=== PATIENT | female | born 1945 | race Caucasian/White ===

== ENCOUNTER → 2018-02-06 | Outpatient (CLI) | payer OTHER ==
[~2018-02-06] MED LIST: ALPRAZOLAM; ASPIR 8181 MG PO; BACTRIM DS TAB1 EACH PO; CIPRO500 MG PO; CIPROFLOXACIN500 M1 PO; FISH OIL 1,001000 M2 PO; FLAGYL500 MG PO; GYNODIOL1 MG PO; LISINOPRIL-HCT1 EAC1 PO; LOPRESSOR 50 MG50 M1 PO; LOPRESSOR50 PO; MIDAMOR 5MG TABL5 M1 PO; MIRALAX17 G1 PO; MIRALAX17 GM PO; NORVASC5 MG PO; PREDNISONE 20 M20 M1 PO; PRILOSEC 20 MG20 MG PO; PRILOSEC20 MG PO; TYLENOL EXTRA500 MG PO; XANAX1 MG PO; ZOFRAN4 MG PO; ZPAK PO
[2018-02-06 08:29] LABS: CREATININE 0.7 mg/dL (0.6-1.3)
== END ==
LOC: M.CT 08:07 → M.LAB 08:30 → M.CT 09:30
PROVIDERS: Family Medicine
DX: N81.10 Cystocele, unspecified (principal); M48.07 Spinal stenosis, lumbosacral region; M77.9 Enthesopathy, unspecified; R19.04 Left lower quadrant abdominal swelling, mass and lump; G95.89 Other specified diseases of spinal cord

== ENCOUNTER → 2018-04-03 | Outpatient (CLI) | payer OTHER | LOC: M.RAD 09:11 | DX: Z12.31 Encounter for screening mammogram for malignant neoplasm of breast (principal) ==

== ENCOUNTER 2018-07-03 09:42 | Emergency (ER) | payer OTHER ==
[~2018-07-03] VITALS: Ht 147.3 cm; Wt 70.0 kg
[2018-07-03 10:38] LABS: HEMATOCRIT 40.4 % (37.0-47.0); HEMOGLOBIN 13.7 gm/dL (12.0-15.0); MCH 27.5 pg (26.0-34.0); MCHC 33.9 g/dL (28.0-37.0); MCV 81.1 fL (80.0-100.0); MPV 8.9 fl. (7.2-11.1); RBC 4.98 mil/uL (4.20-5.00); RDW-CV 14.9 % (10.5-14.5); WBC 7.8 thou/uL (4.0-11.0)
[2018-07-03 10:42] LABS: URINE BILIRUBIN NEGATIVE (Negative); URINE BLOOD NEGATIVE (Negative); URINE CLARITY CLEAR; URINE COLOR YELLOW; URINE GLUCOSE-RANDOM NEGATIVE (Negative); URINE KETONES NEGATIVE (Negative); URINE LEUKOCYTES NEGATIVE (Negative); URINE NITRITE NEGATIVE (Negative); URINE PROTEIN NEGATIVE (Negative); URINE UROBILINOGEN 0.2 E.U./dl (0.2-1.0)
[2018-07-03 10:49] LABS: CALCIUM 8.8 mg/dL (8.5-10.1); CREATININE 0.8 mg/dL (0.6-1.3); POTASSIUM 3.1 mmol/L (3.5-5.1)
[2018-07-03 10:54] LABS: ALBUMIN 3.3 g/dL (3.4-5.0); TOTAL BILIRUBIN 0.4 mg/dL (<0.1-1.0); TOTAL PROTEIN 7.4 g/dL (6.4-8.2)
[2018-07-03 13:40] VITALS: BP 117/42
--- NOTE | 2018-07-03 17:02 | EKG ---
[place] [address] ELECTROCARDIOGRAM REPORT Name: PEDRO GALE [id number] Admission: 07/03/18 Attend Phys: Discharge: 07/03/18 Date of : 43 Report #: [id number] THIS REPORT FOR: //name// [facility] ED Test Date: 2018-07-03 Test Time: 10:29:44 Pat Name: PEDRO GALE Department: Room: Gender: F Relationship Assoc: : 1945 Requested By: Iram Soto Order Number: [id number] MD: Madhu Boyd Measurements Intervals [place] Rate: 59 P: 8 VA: 177 QRS: -7 QRSD: 91 T: -10 QT: 426 QTc: 422 Interpretive Statements Sinus rhythm nonspecific t wave changes Compared to ECG 07/29/2017 09:59:49 no change Electronically Signed On 07-03-2018 17:02:23 CDT by Madhu Boyd [email or web address] <ELECTRONICALLY SIGNED> By: Madhu Boyd MD, [facility] 07/03/18 1702 1029 1029 Madhu Boyd MD, FACC /EPI
== END 2018-07-03 13:41 | disposition home or self-care (01) ==
LOC: M.ERS 09:42
PROVIDERS: Physician Assistant Surgical
DX: R10.84 Generalized abdominal pain (principal); I10 Essential (primary) hypertension; Z90.49 Acquired absence of other specified parts of digestive tract; Z79.82 Long term (current) use of aspirin; Z88.5 Allergy status to narcotic agent

== ENCOUNTER → 2018-11-07 | Outpatient (CLI) | payer OTHER | LOC: M.ULTRA 10-30 09:43 | DX: R10.32 Left lower quadrant pain (principal); Z90.710 Acquired absence of both cervix and uterus; Z90.722 Acquired absence of ovaries, bilateral ==

== ENCOUNTER 2019-06-28 09:14 | Emergency (ER) | payer OTHER ==
[~2019-06-28] VITALS: Ht 147.3 cm; Wt 70.3 kg
[2019-06-28 09:57] LABS: ABSOLUTE BASOPHILS 0.1 thou/uL (0.0-0.2); ABSOLUTE EOSINOPHILS 0.1 thou/uL (0.0-0.7); ABSOLUTE LYMPHOCYTES 1.4 thou/uL (0.8-5.3); ABSOLUTE MONOCYTES 0.4 thou/uL (0.0-1.2); ABSOLUTE NEUTROPHILS 5.9 thou/uL (1.6-8.1); BASOPHILS 0.7 %; EOSINOPHILS 1.9 %; HEMATOCRIT 38.6 % (37.0-47.0); LYMPHOCYTES 17.3 %; MCH 26.8 pg (26.0-34.0); MCHC 33.8 g/dL (28.0-37.0); MCV 79.5 fL (80.0-100.0); MONOCYTES 5.2 %; MPV 8.9 fl. (7.2-11.1); NUCLEATED RBCS 0 /100WBC; PLATELET COUNT* 202 thou/uL (150-400); POLYS 74.9 %; RBC 4.86 mil/uL (4.20-5.00); RDW-CV 15.1 % (10.5-14.5); WBC 7.9 thou/uL (4.0-11.0)
[2019-06-28 10:07] LABS: ANION GAP 9 mmol/L (7-16); BUN 9 mg/dL (7-18); CALCIUM 8.9 mg/dL (8.5-10.1); CHLORIDE 100 mmol/L (98-107); CO2 28 mmol/L (21-32); CREATININE 0.9 mg/dL (0.6-1.3); GLUCOSE 135 mg/dL (70-99); POTASSIUM 3.3 mmol/L (3.5-5.1); SODIUM 137 mmol/L (136-145)
[2019-06-28 10:16] LABS: ALBUMIN 3.2 g/dL (3.4-5.0); ALKALINE PHOSPHATASE 87 U/L (46-116); LIPASE 86 U/L (73-393); SGOT 16 U/L (15-37); SGPT 25 U/L (30-65); TOTAL BILIRUBIN 0.4 mg/dL (<0.1-1.0); TOTAL PROTEIN 6.7 g/dL (6.4-8.2); TROPONIN-I LEVEL <0.06 ng/mL (<0.06)
[2019-06-28] MEDS ORDERED: ZPAK PO (11:43)
[2019-06-28] MEDS ORDERED: FLAGYL500 M1 PO (11:43)
[2019-06-28 12:00] VITALS: BP 143/42
--- NOTE | 2019-06-28 16:44 | EKG ---
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 <ELECTRONICALLY SIGNED> By: Walter Wong MD, [facility] 06/28/19 1644 1009 1009 Walter Wong MD, [facility] /EPI
== END 2019-06-28 12:01 | disposition home or self-care (01) ==
LOC: M.ERS 09:14
PROVIDERS: Emergency Medicine Emergency Medical Services
DX: R19.7 Diarrhea, unspecified (principal); R10.84 Generalized abdominal pain; I10 Essential (primary) hypertension; F41.9 Anxiety disorder, unspecified; Z88.5 Allergy status to narcotic agent; Z90.49 Acquired absence of other specified parts of digestive tract; Z90.710 Acquired absence of both cervix and uterus

== ENCOUNTER → 2019-07-30 | Outpatient (CLI) | payer OTHER ==
[~2019-07-30] MED LIST changes: +FLAGYL500 M1 PO
== END ==
LOC: M.RAD 13:00
DX: Z12.31 Encounter for screening mammogram for malignant neoplasm of breast (principal)

== ENCOUNTER 2020-04-09 13:42 | Emergency (ER) | payer OTHER ==
[~2020-04-09] VITALS: Ht 147.3 cm; Wt 72.6 kg
[2020-04-09] MEDS ORDERED: KLOR-CON 10 ER10 MEQ PO (14:05)
[2020-04-09 14:13] LABS: URINE BILIRUBIN NEGATIVE (Negative); URINE BLOOD NEGATIVE (Negative); URINE CLARITY CLEAR; URINE COLOR YELLOW; URINE GLUCOSE-RANDOM NEGATIVE (Negative); URINE KETONES NEGATIVE (Negative); URINE LEUKOCYTES-REFLEX NEGATIVE (Negative); URINE NITRITE-REFLEX NEGATIVE (Negative); URINE PROTEIN NEGATIVE (Negative); URINE UROBILINOGEN 0.2 E.U./dl (0.2-1.0)
[2020-04-09] MEDS ORDERED: LASIX 40 MG TAB40 MG PO (14:21)
[2020-04-09] MEDS ORDERED: HYDROCHLOROTHIA25 M2 PO (14:22)
[2020-04-09 14:42] LABS: ABSOLUTE BASOPHILS 0.1 thou/uL (0.0-0.2); ABSOLUTE EOSINOPHILS 0.2 thou/uL (0.0-0.7); ABSOLUTE LYMPHOCYTES 2.1 thou/uL (0.8-5.3); ABSOLUTE MONOCYTES 0.6 thou/uL (0.0-1.2); ABSOLUTE NEUTROPHILS 8.3 thou/uL (1.6-8.1); BASOPHILS 0.9 %; EOSINOPHILS 1.6 %; HEMATOCRIT 40.1 % (37.0-47.0); HEMOGLOBIN 13.7 gm/dL (12.0-15.0); LYMPHOCYTES 18.4 %; MCH 27.2 pg (26.0-34.0); MCHC 34.3 g/dL (28.0-37.0); MCV 79.4 fL (80.0-100.0); MONOCYTES 5.5 %; MPV 9.2 fl. (7.2-11.1); NUCLEATED RBCS 0 /100WBC; PLATELET COUNT* 240 thou/uL (150-400); POLYS 73.6 %; RBC 5.05 mil/uL (4.20-5.00); RDW-CV 15.3 % (10.5-14.5); WBC 11.3 thou/uL (4.0-11.0)
[2020-04-09 14:49] LABS: APTT 25.5 Seconds (25.0-31.3); CALCIUM 8.5 mg/dL (8.5-10.1); POTASSIUM 3.1 mmol/L (3.5-5.1)
[2020-04-09 14:59] LABS: ALBUMIN 3.5 g/dL (3.4-5.0); TOTAL BILIRUBIN 0.3 mg/dL (<0.1-1.0); TOTAL PROTEIN 7.5 g/dL (6.4-8.2)
[2020-04-09 16:30] VITALS: BP 131/45
--- NOTE | 2020-04-09 16:37 | EKG ---
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 : 1945 Requested By: Ramsey Butts Order Number: [id number] MD: Madhu Boyd Measurements Intervals [place] Rate: 118 P: 41 ME: 183 QRS: -12 QRSD: 85 T: -15 QT: 334 QTc: 469 Interpretive Statements Sinus tachycardia Low voltage, precordial leads Consider anterior infarct baseline wander Compared to ECG 06/28/2019 10:09:48 Low QRS voltage now present ST (T wave) deviation now present Sinus rhythm no longer present Atrial premature complex(es) no longer present Electronically Signed On 04-09-2020 16:36:04 CDT by Madhu Boyd [email or web address] <ELECTRONICALLY SIGNED> By: Madhu Boyd MD, [facility] 04/09/20 1636 141 141 Madhu Boyd MD, [facility] /EPI
--- NOTE | 2020-04-10 10:15 | EKG ---
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 : 1945 Requested By: Ramsey Butts Order Number: [id number] MD: Madhu Boyd Measurements Intervals [place] Rate: 87 P: 12 [place]: 165 QRS: -13 QRSD: 90 T: -16 QT: 367 QTc: 442 Interpretive Statements Sinus rhythm Low voltage, precordial leads Consider anterior infarct Borderline T abnormalities, inferior leads Baseline wander in lead(s) I,II,III,aVR,aVL,V2,V3 Compared to ECG 04/09/2020 14:12:46 Sinus tachycardia no longer present Myocardial infarct finding still present Electronically Signed On 04-10-2020 10:14:20 CDT by Madhu Boyd [email or web address] <ELECTRONICALLY SIGNED> By: Madhu Boyd MD, [facility] 04/10/20 1014 1613 1613 Madhu Boyd MD, [facility] /EPI
== END 2020-04-09 16:31 | disposition home or self-care (01) ==
LOC: M.ERS 13:42
PROVIDERS: Family Medicine
DX: R06.00 Dyspnea, unspecified (principal); R53.1 Weakness; R14.0 Abdominal distension (gaseous); I10 Essential (primary) hypertension; F41.9 Anxiety disorder, unspecified; Z90.49 Acquired absence of other specified parts of digestive tract; Z88.5 Allergy status to narcotic agent; Z90.710 Acquired absence of both cervix and uterus; Z90.89 Acquired absence of other organs; Z79.899 Other long term (current) drug therapy; Z79.82 Long term (current) use of aspirin

== ENCOUNTER 2020-12-06 08:36 | Emergency (ER) | payer OTHER ==
[~2020-12-06] VITALS: Ht 147.3 cm; Wt 72.6 kg
[~2020-12-06 08:36] MED LIST changes: +HYDROCHLOROTHIA25 M2 PO; +KLOR-CON 10 ER10 MEQ PO; +LASIX 40 MG TAB40 MG PO
[2020-12-06 08:50] VITALS: BP 145/68
[2020-12-06] MEDS ORDERED: TOPROL XL50 MG PO (08:53)
[2020-12-06] MEDS ORDERED: BENTYL 10 MG CA10 M1 PO (08:53)
[2020-12-06] MEDS ORDERED: VITAMIN D-40010 MCG PO (08:54)
== END 2020-12-06 09:55 | disposition home or self-care (01) ==
LOC: M.ERS 08:36
DX: M79.604 Pain in right leg (principal); I10 Essential (primary) hypertension; Z90.710 Acquired absence of both cervix and uterus; Z90.49 Acquired absence of other specified parts of digestive tract; Z88.5 Allergy status to narcotic agent

== ENCOUNTER 2020-12-11 01:17 | Emergency (ER) | payer OTHER ==
[~2020-12-11] VITALS: Ht 147.3 cm; Wt 72.6 kg
[~2020-12-11 01:17] MED LIST changes: +BENTYL 10 MG CA10 M1 PO; +TOPROL XL50 MG PO; +VITAMIN D-40010 MCG PO
[2020-12-11] MEDS ORDERED: TOPROL XL50 MG (01:24)
[2020-12-11] MEDS ORDERED: LASIX 40 MG TAB40 MG PO (01:25)
[2020-12-11] MEDS ORDERED: HYDROCHLOROTHIA25 M2 PO (01:25)
[2020-12-11] MEDS ORDERED: EFFER-K 10 MEQ10 ME1 PO (01:25)
[2020-12-11] MEDS ORDERED: MIRALAX119 GM PO (01:26)
[2020-12-11] MEDS ORDERED: OMEPRAZOLE 20 M20 M1 PO (01:26)
[2020-12-11 02:07] LABS: URINE BILIRUBIN NEGATIVE (Negative); URINE BLOOD NEGATIVE (Negative); URINE CLARITY CLEAR; URINE COLOR YELLOW; URINE GLUCOSE-RANDOM 1+ (Negative); URINE KETONES NEGATIVE (Negative); URINE LEUKOCYTES-REFLEX NEGATIVE (Negative); URINE NITRITE-REFLEX NEGATIVE (Negative); URINE PROTEIN NEGATIVE (Negative); URINE SPECIFIC GRAVITY <= 1.005 (1.005-1.030); URINE UROBILINOGEN 0.2 E.U./dl (0.2-1.0)
[2020-12-11 02:48] LABS: ABSOLUTE EOSINOPHILS 0.1 thou/uL (0.0-0.7); ABSOLUTE LYMPHOCYTES 0.6 thou/uL (0.8-5.3); ABSOLUTE MONOCYTES 0.6 thou/uL (0.0-1.2); ABSOLUTE NEUTROPHILS 4.5 thou/uL (1.6-8.1); BASOPHILS 0.5 %; EOSINOPHILS 1.7 %; HEMATOCRIT 35.8 % (37.0-47.0); HEMOGLOBIN 12.3 gm/dL (12.0-15.0); LYMPHOCYTES 10.6 %; MCH 26.6 pg (26.0-34.0); MCHC 34.5 g/dL (28.0-37.0); MCV 77.1 fL (80.0-100.0); MONOCYTES 9.6 %; MPV 7.9 fl. (7.2-11.1); NUCLEATED RBCS 0 /100WBC; PLATELET COUNT* 163 thou/uL (150-400); POLYS 77.6 %; RBC 4.64 mil/uL (4.20-5.00); RDW-CV 15.6 % (10.5-14.5); WBC 5.8 thou/uL (4.0-11.0)
[2020-12-11 02:52] LABS: CALCIUM 8.7 mg/dL (8.5-10.1); CREATININE 0.8 mg/dL (0.6-1.3); POTASSIUM 3.3 mmol/L (3.5-5.1)
[2020-12-11 02:57] LABS: TOTAL BILIRUBIN 0.3 mg/dL (<0.1-1.0); TOTAL PROTEIN 6.4 g/dL (6.4-8.2)
[2020-12-11] MEDS ORDERED: ACYCLOVIR 400400 MG PO (03:20)
[2020-12-11] MEDS ORDERED: HYDROCODON-ACE1 EAC8 PO (03:20)
[2020-12-11 04:14] VITALS: BP 161/52
== END 2020-12-11 04:15 | disposition home or self-care (01) ==
LOC: M.ERS 01:17
PROVIDERS: Emergency Medicine
DX: B02.9 Zoster without complications (principal); K59.00 Constipation, unspecified; M54.9 Dorsalgia, unspecified; R39.12 Poor urinary stream; I10 Essential (primary) hypertension; F41.9 Anxiety disorder, unspecified; Z90.711 Acquired absence of uterus with remaining cervical stump; Z90.49 Acquired absence of other specified parts of digestive tract; Z98.890 Other specified postprocedural states; Z79.82 Long term (current) use of aspirin; Z79.899 Other long term (current) drug therapy; Z88.5 Allergy status to narcotic agent

== ENCOUNTER 2020-12-29 15:07 | Emergency (ER) | payer OTHER ==
[~2020-12-29] VITALS: Ht 147.3 cm; Wt 71.2 kg
[~2020-12-29 15:07] MED LIST changes: +ACYCLOVIR 400400 MG PO; +EFFER-K 10 MEQ10 ME1 PO; +HYDROCODON-ACE1 EAC8 PO; +MIRALAX119 GM PO; +OMEPRAZOLE 20 M20 M1 PO; +TOPROL XL50 MG
[2020-12-29] MEDS ORDERED: NORCO5 PO (15:23)
[2020-12-29] MEDS ORDERED: NEURONTIN300 MG PO (15:23)
[2020-12-29 16:21] LABS: ABSOLUTE EOSINOPHILS 0.2 thou/uL (0.0-0.7); ABSOLUTE LYMPHOCYTES 1.4 thou/uL (0.8-5.3); ABSOLUTE MONOCYTES 0.5 thou/uL (0.0-1.2); ABSOLUTE NEUTROPHILS 6.7 thou/uL (1.6-8.1); BASOPHILS 0.4 %; EOSINOPHILS 1.9 %; HEMATOCRIT 40.7 % (37.0-47.0); HEMOGLOBIN 13.5 gm/dL (12.0-15.0); LYMPHOCYTES 15.8 %; MCHC 33.1 g/dL (28.0-37.0); MCV 78.4 fL (80.0-100.0); MONOCYTES 5.3 %; MPV 7.8 fl. (7.2-11.1); NUCLEATED RBCS 0 /100WBC; PLATELET COUNT* 269 thou/uL (150-400); POLYS 76.6 %; RBC 5.19 mil/uL (4.20-5.00); RDW-CV 15.8 % (10.5-14.5); WBC 8.7 thou/uL (4.0-11.0)
[2020-12-29 16:28] LABS: CALCIUM 9.9 mg/dL (8.5-10.1); CREATININE 0.7 mg/dL (0.6-1.3); POTASSIUM 3.6 mmol/L (3.5-5.1)
[2020-12-29 17:52] VITALS: BP 155/61
--- NOTE | 2020-12-30 09:31 | EKG ---
[place] [address] ELECTROCARDIOGRAM REPORT Name: PEDRO GALE Room: 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[facility] : 1945 Requested By: Brynn Reddy Order Number: [id number] MD: Zechariah Lindo Measurements Intervals [place] Rate: 75 P: 6 [place]: 151 QRS: -14 QRSD: 89 T: -16 QT: 402 QTc: 449 Interpretive Statements Sinus rhythm Delayed R wave progression Nonspecific ST segment depression compared to ECG 04/09/2020 16:13:09 no significant changes noted Electronically Signed On 12-30-2020 9:31:21 CREMATOR by Zechariah Lindo [email or web address] <ELECTRONICALLY SIGNED> By: Zechariah Lindo MD, FACC 12/30/20 0931 1734 1734 Zechariah Lindo MD, [facility] /EPI
== END 2020-12-29 17:53 | disposition home or self-care (01) ==
LOC: M.ERS 15:07
PROVIDERS: Nurse Practitioner Family
DX: S83.8X1A Sprain of other specified parts of right knee, initial encounter (principal); B02.9 Zoster without complications; R73.9 Hyperglycemia, unspecified; I10 Essential (primary) hypertension; Z88.5 Allergy status to narcotic agent; Z79.899 Other long term (current) drug therapy; Z79.82 Long term (current) use of aspirin; Z90.710 Acquired absence of both cervix and uterus; Z90.49 Acquired absence of other specified parts of digestive tract; Z98.890 Other specified postprocedural states; X50.1XXA Overexertion from prolonged static or awkward postures, initial encounter; Y93.89 Activity, other specified; Y92.89 Other specified places as the place of occurrence of the external cause; Y99.9 Unspecified external cause status